=== PATIENT | male | born 1960 | race Caucasian/White ===

== ENCOUNTER 2022-05-13 14:41 | Emergency (ER) | payer MEDICAID ==
[2022-05-13] MEDS: Bacitracin Oint 1 GM U/D Packet TOP ONE (16:14)
[2022-05-13] MEDS: Diphtheria,Pertussis(Acell),Tetanus Vaccine 0.5 ML Syringe IM ONE (16:32)
== END 2022-05-13 16:40 | disposition home or self-care (01) ==
LOC: JP.ED 14:41
DX: S90.851A Superficial foreign body, right foot, initial encounter (principal); I10 Essential (primary) hypertension; Z23 Encounter for immunization; W27.3XXA Contact with needle (sewing), initial encounter
CPT/HCPCS: 10120; 73620-26-RT; 73620-RT; 73630-26-RT; 73630-RT; 90471; 90715; 99282; 99283-25